=== PATIENT | female | born 1945 | race African-American/Black ===

== ENCOUNTER 2018-03-27 13:51 | Inpatient (IN) | payer MEDICARE, MEDICAID ==
[2018-03-27] VITALS (8 sets, daily range): BP systolic 101–124; BP diastolic 46–67
[~2018-03-27] VITALS: Ht 165.1 cm; Wt 75.0 kg
[~2018-03-27 13:51] MED LIST: ASPI-867 PO; ATOR10TA PO; CRANBERRY PO; HYDR-523 PO; MEMA5TAB7 PO; MULT-1146 PO; Metformin Hcl PO; Multivitamins,Ther W-Minerals PO; NITR0.4T49 SL; plavix PO
[2018-03-27] MEDS ORDERED: SODIUM CHLORIDE 0.9% 1000ML BAG (SEPSIS BOLUS) IV ONE (14:30)
[2018-03-27] MEDS ORDERED: VANCOMYCIN 1 G PREMIX 200 ML IV ONE (14:30)
[2018-03-27] MEDS ORDERED: PIPERACILLIN/TAZ 3.375G PREMIX 50 ML IV ONE (14:30)
[2018-03-27 15:07] LABS: HEMATOCRIT. 21.1 % (36.0-48.0); MEAN CORPUSCULAR HEMOGLOBIN 23.7 pg (28.0-32.0); MEAN CORPUSCULAR VOLUME 77.7 fL (81.0-99.0); MEAN PLATELET VOLUME 7.8 fl (7.4-10.4); PLATELET 596 x1000/uL (130-400); RED BLOOD CELL COUNT 2.72 mill/uL (4.2-5.4); RED CELL DISTRIBUTION WIDTH 20.1 % (11.6-14.6)
[2018-03-27 15:10] LABS: CHLORIDE 114 mEq/L (98-107)
[2018-03-27 15:12] LABS: INR 1.1; PARTIAL THROMBOPLASTIN TIME 31.7 sec (23.4-31.0); PROTHROMBIN TIME 11.3 sec (9.1-11.1)
[2018-03-27 15:16] LABS: HEMOGLOBIN. 6.4 g/dL (12.0-16.0)
[2018-03-27 15:19] LABS: AMMONIA 26 uMol/L (<32)
[2018-03-27 16:03] LABS: PLATELET ESTIMATE MARKEDLY INCREASED
[2018-03-27] MEDS ORDERED: ACETAMINOPHEN 325MG TABLET PO PRN (16:45)
[2018-03-27] MEDS ORDERED: DIPHENHYDRAMINE 50MG/ML VIAL IV PRN (16:45)
[2018-03-27] MEDS ORDERED: DOCUSATE SODIUM 100MG CAPSULE PO PRN (16:45)
[2018-03-27 17:32] LABS: CLARITY URINE TURBID (CLEAR); COLOR URINE YELLOW (YELLOW); KETONES URINE TRACE (NEGATIVE); LEUKOCYTE ESTERASE URINE 3+ (NEGATIVE); NITRITE URINE NEGATIVE (NEGATIVE); OCCULT BLOOD URINE 3+ (NEGATIVE); PROTEIN URINE 2+ (NEGATIVE); SPECIFIC GRAVITY URINE 1.016 (1.005-1.030); UROBILINOGEN URINE 0.2 E.U./dL (0.2-1.0)
[2018-03-27] MEDS ORDERED: NA PHOS,M-B/NA PHOS,DI-BA ENEMA 118ML PR PRN (18:49)
[2018-03-27] MEDS ORDERED: ONDANSETRON HCL 4MG/2ML INJ IV PRN (18:50)
[2018-03-27] MEDS ORDERED: GUAIFENESIN 200MG/10ML SUGAR FREE UDC PO PRN (18:50)
[2018-03-27] MEDS ORDERED: DOCU100T PO (21:02)
[2018-03-27] MEDS ORDERED: ZINC220T PO (21:02)
[2018-03-27] MEDS ORDERED: DONE10TA43 PO (21:02)
[2018-03-27] MEDS ORDERED: LISI10TA5 PO (21:02)
[2018-03-27] MEDS ORDERED: MEGE400O23 PO (21:02)
[2018-03-27] MEDS ORDERED: ACET-2853 PO (21:02)
[2018-03-27] MEDS ORDERED: CLON0.1T PO (21:02)
[2018-03-27] MEDS ORDERED: MEMA5TAB15 PO (21:02)
[2018-03-27] MEDS ORDERED: ASPI-1159 PO (21:02)
[2018-03-27] MEDS ORDERED: ASCO500C15 PO (21:02)
[2018-03-27] MEDS ORDERED: GLUC1VIA6 IJ (21:02)
[2018-03-27] MEDS ORDERED: MULT-1146 PO (21:02)
[2018-03-27] MEDS ORDERED: INSASP SUBCUT (21:02)
[2018-03-27] MEDS ORDERED: LEVVL SQ (21:02)
[2018-03-27] MEDS ORDERED: POLY17PO PO (21:02)
[2018-03-27] MEDS ORDERED: METF500T6 PO (21:02)
[2018-03-27 21:20] LABS: CLARITY URINE TURBID (CLEAR); COLOR URINE DARK YELLOW (YELLOW); KETONES URINE TRACE (NEGATIVE); LEUKOCYTE ESTERASE URINE 3+ (NEGATIVE); NITRITE URINE NEGATIVE (NEGATIVE); OCCULT BLOOD URINE 3+ (NEGATIVE); PH URINE 6.5 (4.5-8.0); PROTEIN URINE 2+ (NEGATIVE); SPECIFIC GRAVITY URINE 1.017 (1.005-1.030); UROBILINOGEN URINE 0.2 E.U./dL (0.2-1.0)
[2018-03-27] MEDS: SODIUM CHLORIDE 0.9% INJ 3ML FLUSH IVF SCH (21:27)
[2018-03-27] MEDS ORDERED: DEXTROSE 50% WATER 50ML SYRINGE IV PRN (21:45)
[2018-03-27 21:54] LABS: *AMPHETAMINES SCREEN URINE NEGATIVE (NEGATIVE); *BARBITURATES SCREEN URINE NEGATIVE (NEGATIVE); *BENZODIAZEPINES SCREEN URINE NEGATIVE (NEGATIVE); *COCAINE SCREEN URINE NEGATIVE (NEGATIVE); METHADONE URINE SCREEN NEGATIVE (NEGATIVE)
[2018-03-27 21:55] LABS: CANNABINOID URINE SCREEN NEGATIVE (NEGATIVE); OPIATES URINE SCREEN NEGATIVE (NEGATIVE); PHENCYCLIDINE URINE SCREEN NEGATIVE (NEGATIVE)
[2018-03-27] MEDS ORDERED: CEFTRIAXONE 1 G PREMIX 50 ML IV SCH (23:00)
[2018-03-27] MEDS ORDERED: CEFEPIME 2,000 MG in DEXT 5% WATER 100 ML IV SCH (23:30)
[2018-03-27 23:59] LABS: CREATINE KINASE MB FRACTION 1.4 ng/mL (0.5-3.6)
[2018-03-28] VITALS (17 sets, daily range): BP systolic 78–113; BP diastolic 39–74
[2018-03-28 03:30] LABS: HEMATOCRIT. 28.3 % (36.0-48.0); HEMOGLOBIN. 8.6 g/dL (12.0-16.0); MEAN CORPUSCULAR HEMOGLOBIN 24.6 pg (28.0-32.0); MEAN CORPUSCULAR VOLUME 80.7 fL (81.0-99.0); MEAN PLATELET VOLUME 7.7 fl (7.4-10.4); PLATELET 543 x1000/uL (130-400); RED BLOOD CELL COUNT 3.51 mill/uL (4.2-5.4); RED CELL DISTRIBUTION WIDTH 19.4 % (11.6-14.6)
[2018-03-28 03:32] LABS: CHLORIDE 117 mEq/L (98-107)
[2018-03-28 03:39] LABS: INR 1.1; LDL CHOLESTEROL 80 mg/dL (5-100); PROTHROMBIN TIME 11.4 sec (9.1-11.1)
[2018-03-28 03:40] LABS: HDL CHOLESTEROL 18 mg/dL (40-59)
[2018-03-28 03:41] LABS: CREATINE KINASE 187 IU/L (26-192)
[2018-03-28 03:43] LABS: CREATINE KINASE MB FRACTION 1.2 ng/mL (0.5-3.6)
[2018-03-28 04:21] LABS: PLATELET ESTIMATE INCREASED
[2018-03-28] MEDS: CEFEPIME 1,000 MG in DEXTROSE 5% WATER 50 ML IV SCH (05:05)
[2018-03-28] MEDS: SODIUM CHLORIDE 0.45% 1,000 ML IV SCH ×3 (05:06→21:21)
[2018-03-28] MEDS: SODIUM CHLORIDE 0.9% INJ 3ML FLUSH IVF SCH ×3 (05:31→21:22)
[2018-03-28] MEDS: BLOOD SUGAR DIAGNOSTIC STRIP TEST SCH ×4 (07:20→21:18)
[2018-03-28] MEDS: INSULIN LISPRO 100 UNITS/ML SUBCUT SCH ×4 (07:20→21:00)
[2018-03-28] MEDS ORDERED: VANCOMYCIN 500 MG PREMIX 100 ML IV SCH (16:00)
[2018-03-29] VITALS (13 sets, daily range): BP systolic 83–109; BP diastolic 43–57
[2018-03-29] MEDS: CEFEPIME 1,000 MG in DEXTROSE 5% WATER 50 ML IV SCH (01:53)
[2018-03-29] MEDS: SODIUM CHLORIDE 0.45% 1,000 ML IV SCH ×2 (02:04→10:19)
[2018-03-29] MEDS: SODIUM CHLORIDE 0.9% INJ 3ML FLUSH IVF SCH ×3 (06:26→21:18)
[2018-03-29] MEDS: BLOOD SUGAR DIAGNOSTIC STRIP TEST SCH ×4 (06:26→21:16)
[2018-03-29] MEDS: INSULIN LISPRO 100 UNITS/ML SUBCUT SCH ×4 (07:09→21:19)
[2018-03-29 07:16] LABS: BASOPHILS % 0.1 % (0.0-2.0); EOSINOPHILS % 0.2 % (0.0-5.0); HEMATOCRIT. 28.5 % (36.0-48.0); HEMOGLOBIN. 8.9 g/dL (12.0-16.0); MEAN CORPUSCULAR HEMOGLOBIN 25.5 pg (28.0-32.0); MEAN CORPUSCULAR VOLUME 81.6 fL (81.0-99.0); MONOCYTES % 6.2 % (2.0-8.0); NEUTROPHILS % 85.5 % (40.0-76.0); PLATELET 510 x1000/uL (130-400); RED BLOOD CELL COUNT 3.49 mill/uL (4.2-5.4)
[2018-03-29 07:36] LABS: PHOSPHORUS 3.4 mg/dL (2.5-4.9)
[2018-03-29] MEDS ORDERED: LIDOCAINE HCL/EPINEPHRINE 1%-EPI 1:100,000 20 ML VIAL INFIL NR (09:45)
[2018-03-29] MEDS ORDERED: SODIUM BICARBONATE 50 MEQ in DEXTROSE 5% WATER 1,000 ML IV SCH (18:00)
[2018-03-29] MEDS ORDERED: VANCOMYCIN 750 MG PREMIX 150 ML IV SCH (18:00)
[2018-03-29] MEDS: SODIUM BICARBONATE 50 MEQ in DEXTROSE 5% WATER 1,000 ML IV SCH (19:25)
[2018-03-30] VITALS (12 sets, daily range): BP systolic 84–109; BP diastolic 47–68
[2018-03-30] MEDS: CEFEPIME 1,000 MG in DEXTROSE 5% WATER 50 ML IV SCH (01:29)
[2018-03-30] MEDS: SODIUM BICARBONATE 50 MEQ in DEXTROSE 5% WATER 1,000 ML IV SCH (05:52)
[2018-03-30] MEDS: SODIUM CHLORIDE 0.9% INJ 3ML FLUSH IVF SCH ×3 (05:52→21:04)
[2018-03-30] MEDS: BLOOD SUGAR DIAGNOSTIC STRIP TEST SCH ×4 (06:23→21:01)
[2018-03-30 07:28] LABS: HEMATOCRIT. 29.7 % (36.0-48.0); HEMOGLOBIN. 9.4 g/dL (12.0-16.0); MEAN CORPUSCULAR HEMOGLOBIN 25.4 pg (28.0-32.0); MEAN CORPUSCULAR VOLUME 80.5 fL (81.0-99.0); PLATELET 486 x1000/uL (130-400); RED BLOOD CELL COUNT 3.69 mill/uL (4.2-5.4); RED CELL DISTRIBUTION WIDTH 20.1 % (11.6-14.6)
[2018-03-30 07:50] LABS: PHOSPHORUS 3.3 mg/dL (2.5-4.9)
[2018-03-30] MEDS: INSULIN LISPRO 100 UNITS/ML SUBCUT SCH ×4 (08:11→21:02)
[2018-03-30] MEDS: SODIUM HYPOCHLORITE 0.125% 473ML SOLUTION TOP SCH (12:00)
[2018-03-30 12:40] LABS: PLATELET ESTIMATE SLIGHTLY INCREASED
[2018-03-30] MEDS: SODIUM BICARBONATE IV SCH ×2 (17:02→22:45)
[2018-03-30] MEDS: DEXTROSE 5% IV SCH ×2 (17:02→22:45)
[2018-03-30] MEDS: WATER IV SCH ×2 (17:02→22:45)
[2018-03-30] MEDS: MEROPENEM 500MG in NORMAL SALINE 50ML IV SCH (17:03)
[2018-03-31] VITALS (14 sets, daily range): BP systolic 92–121; BP diastolic 47–73
[2018-03-31] MEDS: WATER IV SCH (04:07)
[2018-03-31] MEDS: DEXTROSE 5% IV SCH (04:07)
[2018-03-31] MEDS: SODIUM BICARBONATE IV SCH (04:07)
[2018-03-31] MEDS: SODIUM CHLORIDE 0.9% INJ 3ML FLUSH IVF SCH ×3 (06:38→21:10)
[2018-03-31] MEDS: BLOOD SUGAR DIAGNOSTIC STRIP TEST SCH ×4 (06:38→21:10)
[2018-03-31 06:48] LABS: HEMOGLOBIN. 9.2 g/dL (12.0-16.0); MEAN CORPUSCULAR HEMOGLOBIN 25.1 pg (28.0-32.0); MEAN CORPUSCULAR VOLUME 79.6 fL (81.0-99.0); PLATELET 471 x1000/uL (130-400); RED BLOOD CELL COUNT 3.65 mill/uL (4.2-5.4); RED CELL DISTRIBUTION WIDTH 19.8 % (11.6-14.6)
[2018-03-31 07:52] LABS: PHOSPHORUS 2.5 mg/dL (2.5-4.9)
[2018-03-31 08:10] LABS: FOLIC ACID (FOLATE) SERUM 3.3 ng/mL (>5.38)
[2018-03-31] MEDS: INSULIN LISPRO 100 UNITS/ML SUBCUT SCH ×4 (08:23→21:15)
[2018-03-31] MEDS: MEROPENEM 500MG in NORMAL SALINE 50ML IV SCH (08:24)
[2018-03-31] MEDS: SODIUM HYPOCHLORITE 0.125% 473ML SOLUTION TOP SCH (09:00)
[2018-03-31] MEDS ORDERED: POTASSIUM CHLORIDE INJ 40 MEQ in DEXT 5% WATER 250 ML IV NR (09:30)
[2018-03-31 10:20] LABS: PLATELET ESTIMATE SLIGHTLY INCREASED
[2018-03-31 14:34] LABS: T4 FREE 1.06 ng/dL (0.76-1.46)
[2018-03-31 15:55] LABS: CREATINE KINASE MB FRACTION 2.1 ng/mL (0.5-3.6)
[2018-03-31] MEDS ORDERED: SODIUM BICARBONATE 50 MEQ in DEXTROSE 5% WATER 1,000 ML IV SCH (16:34)
[2018-03-31] MEDS ORDERED: KCL 20MEQ/100ML PREMIX 100 ML IV NR (21:00)
[2018-03-31] MEDS: PANTOPRAZOLE SODIUM 40 MG/VIAL IV SCH (21:03)
[2018-03-31 23:47] LABS: CREATINE KINASE MB FRACTION 1.6 ng/mL (0.5-3.6)
[2018-04-01] VITALS (10 sets, daily range): BP systolic 82–134; BP diastolic 38–58
[2018-04-01] MEDS: DEXTROSE 5% IV SCH (03:42)
[2018-04-01] MEDS: SODIUM BICARBONATE IV SCH (03:42)
[2018-04-01] MEDS: WATER IV SCH (03:42)
[2018-04-01 05:43] LABS: CHLORIDE 108 mEq/L (98-107)
[2018-04-01 05:46] LABS: INR 1.2; PARTIAL THROMBOPLASTIN TIME 35.9 sec (23.4-31.0)
[2018-04-01 05:52] LABS: PHOSPHORUS 2.3 mg/dL (2.5-4.9)
[2018-04-01 05:53] LABS: CREATINE KINASE 35 IU/L (26-192)
[2018-04-01 05:55] LABS: CREATINE KINASE MB FRACTION 1.3 ng/mL (0.5-3.6)
[2018-04-01] MEDS: BLOOD SUGAR DIAGNOSTIC STRIP TEST SCH ×3 (06:00→17:20)
[2018-04-01] MEDS: SODIUM CHLORIDE 0.9% INJ 3ML FLUSH IVF SCH ×2 (06:01→18:08)
[2018-04-01 06:15] LABS: EOSINOPHILS % 0.9 % (0.0-5.0); HEMATOCRIT. 28.1 % (36.0-48.0); HEMOGLOBIN. 9.1 g/dL (12.0-16.0); LYMPHOCYTES % 10.3 % (20.0-50.0); MEAN CORPUSCULAR HEMOGLOBIN 25.6 pg (28.0-32.0); NEUTROPHILS % 82.8 % (40.0-76.0); PLATELET 460 x1000/uL (130-400); RED BLOOD CELL COUNT 3.55 mill/uL (4.2-5.4); RED CELL DISTRIBUTION WIDTH 20.7 % (11.6-14.6)
[2018-04-01] MEDS: INSULIN LISPRO 100 UNITS/ML SUBCUT SCH ×3 (07:20→17:50)
[2018-04-01] MEDS: SODIUM HYPOCHLORITE 0.125% 473ML SOLUTION TOP SCH (09:21)
[2018-04-01] MEDS: MEROPENEM 500MG in NORMAL SALINE 50ML IV SCH (09:31)
[2018-04-01] MEDS: PANTOPRAZOLE SODIUM 40 MG/VIAL IV SCH (09:31)
== END 2018-04-01 21:08 | DRG 853 ==
LOC: ER 13:51 → EDBEDREQSVC 16:17 → EDBEDREQ 16:17 → ENRESERV 17:14 → 3WST 17:14 → 6EST 04-01 11:28
PROVIDERS: ADMIT Family Medicine; ATTEND Family Medicine
PROC: 30233N1 Transfusion of Nonautologous Red Blood Cells into Peripheral Vein, Percutaneous Approach (ICD-10-PCS; 2018-03-27)
PROC: 0JBR0ZZ Excision of Left Foot Subcutaneous Tissue and Fascia, Open Approach (ICD-10-PCS; principal; 2018-03-29)
PROC: 0JBQ0ZZ Excision of Right Foot Subcutaneous Tissue and Fascia, Open Approach (ICD-10-PCS; 2018-03-29)
PROC: 0KBN0ZZ Excision of Right Hip Muscle, Open Approach (ICD-10-PCS; 2018-03-29)
PROC: 0QB10ZZ Excision of Sacrum, Open Approach (ICD-10-PCS; 2018-03-29)
PROC: 0QB10ZX Excision of Sacrum, Open Approach, Diagnostic (ICD-10-PCS; 2018-03-29)
DX: A41.9 Sepsis, unspecified organism (principal); L89.214 Pressure ulcer of right hip, stage 4; L89.154 Pressure ulcer of sacral region, stage 4; G93.40 Encephalopathy, unspecified; N17.0 Acute kidney failure with tubular necrosis; E43 Unspecified severe protein-calorie malnutrition; N39.0 Urinary tract infection, site not specified; E87.0 Hyperosmolality and hypernatremia; Z66 Do not resuscitate; E86.0 Dehydration; D50.9 Iron deficiency anemia, unspecified; E11.22 Type 2 diabetes mellitus with diabetic chronic kidney disease; Z79.899 Other long term (current) drug therapy; E11.51 Type 2 diabetes mellitus with diabetic peripheral angiopathy without gangrene; E11.622 Type 2 diabetes mellitus with other skin ulcer; E11.65 Type 2 diabetes mellitus with hyperglycemia; L89.029 Pressure ulcer of left elbow, unspecified stage; L89.890 Pressure ulcer of other site, unstageable; B96.1 Klebsiella pneumoniae [K. pneumoniae] as the cause of diseases classified elsewhere; E78.00 Pure hypercholesterolemia, unspecified; I12.9 Hypertensive chronic kidney disease with stage 1 through stage 4 chronic kidney disease, or unspecified chronic kidney disease; B95.4 Other streptococcus as the cause of diseases classified elsewhere; E78.5 Hyperlipidemia, unspecified; F03.90 Unspecified dementia, unspecified severity, without behavioral disturbance, psychotic disturbance, mood disturbance, and anxiety; R62.7 Adult failure to thrive; N18.3 Chronic kidney disease, stage 3 (moderate); F32.9 Major depressive disorder, single episode, unspecified; E11.42 Type 2 diabetes mellitus with diabetic polyneuropathy; Z74.01 Bed confinement status; Z86.73 Personal history of transient ischemic attack (TIA), and cerebral infarction without residual deficits; Z79.82 Long term (current) use of aspirin; Z79.84 Long term (current) use of oral hypoglycemic drugs; Z68.27 Body mass index [BMI] 27.0-27.9, adult
CPT/HCPCS: 36415; 70450; 71045; 76770; 78580; 80048; 80053; 80061; 80076; 80202; 80305; 81003; 82140; 82270; 82550; 82553; 82607; 82728; 82746; 82962; 83036; 83540; 83550; 83605; 83735; 83880; 84100; 84134; 84439; 84443; 84484; 85025; 85379; 85384; 85610; 85730; 86850; 86900; 86920; 87040; 87070; 87075; 87077; 87086; 87186; 87205; 92610; 93005; 93306; 96365; 96366; 99291; C9113; J0692; J0696; J1815; J2185; J2543; J3370; J3480; J3490; J7030; J7040; J7050; J7060; J7070; P9016; A4315